=== PATIENT | female | born 1965 | race Caucasian/White ===

== ENCOUNTER 2018-09-23 19:20 | Emergency (ER) | payer BC, OTHER ==
--- NOTE | 2018-09-23 19:42 | C.PDOC ---
Chief Complaint (Nursing): Breast Problem Past Medical History Vital Signs: Last Vital Signs Temp 98 F 09/23/18 19:24 Pulse 70 09/23/18 19:24 Resp 18 09/23/18 19:24 BP 143/76 09/23/18 19:24 Pulse Ox 95 09/23/18 19:24 - Medical History PMH: HTN, Hypercholesterolemia - [facility] Procedures NEBULIZER THERAPY (05/18/13) - Social History Hx Tobacco Use: No Hx Alcohol Use: Yes Hx Substance Use: No - Immunization History Hx Tetanus Toxoid Vaccination: No Hx Influenza Vaccination: No Hx Pneumococcal Vaccination: No ED Course And Treatment O2 Sat by Pulse Oximetry: 95 Disposition - Disposition
--- NOTE | 2018-09-23 20:59 | C.PDOC ---
History Of Present Illness 53yo female, with history of hypertension, high cholesterol, comes to ER reporting left sided chest pain and left lateral chest wall pain x 4 days. Patient states she had similar pain 1 week ago and was resolved, but returned 4 days ago, causing her concern. She reports the pain is pressure-like and worse at night and associated with difficulty breathing. She reports taking Ibuprofen with minimal relief. Otherwise, no fever, chills, night sweats, abdominal pain, vomiting, diarrhea, rash. No additional complaints. Of note, patient also denies any changes to her breast or nipple discharge. PMD: None Time Seen by Provider: 09/23/18 19:42 Chief Complaint (Nursing): Breast Problem History Per: Patient History/Exam Limitations: no limitations Onset/Duration Of Symptoms: Days Current Symptoms Are (Timing): Still Present Past Medical History Reviewed: Historical Data, Nursing Documentation, Vital Signs Vital Signs: Last Vital Signs Temp 98 F 09/23/18 19:24 Pulse 70 09/23/18 19:24 Resp 18 09/23/18 19:24 BP 143/76 09/23/18 19:24 Pulse Ox 95 09/23/18 19:24 - Medical History PMH: HTN, Hypercholesterolemia Surgical History: No Surg Hx - [facility] Procedures NEBULIZER THERAPY (05/18/13) Family History: States: Unknown Family Hx Other Family History: dad w/ pacemaker at 74 - Social History Hx Tobacco Use: No Hx Alcohol Use: Yes Hx Substance Use: No - Immunization History Hx Tetanus Toxoid Vaccination: No Hx Influenza Vaccination: No Hx Pneumococcal Vaccination: No Review Of Systems Except As Marked, All Systems Reviewed And Found Negative. Constitutional: Negative for: Fever, Chills, Sweats Cardiovascular: Positive for: Chest Pain Respiratory: Negative for: Shortness of Breath Gastrointestinal: Negative for: Nausea, Vomiting, Abdominal Pain Genitourinary: Negative for: Dysuria Neurological: Negative for: Weakness, Numbness Physical Exam - Physical Exam Appears: Non-toxic, No Acute Distress Skin: Normal Color, Warm, Dry Head: Atraumatic, Normacephalic Eye(s): bilateral: Normal Inspection Neck: Normal ROM, Supple Chest: Symmetrical, Tenderness (tenderness to palpation of ) Cardiovascular: Rhythm Regular, No Murmur Respiratory: Normal Breath Sounds, No Wheezing Gastrointestinal/Abdominal: Normal Exam, Soft Back: Normal Inspection Extremity: Normal ROM, No Pedal Edema Neurological/Psych: Oriented x3 ED Course And Treatment - Laboratory Results Result Diagrams: 09/23/18 21:05 09/23/18 21:05 ECG: Interpreted By Me, Viewed By Me ECG Rhythm: Sinus Rhythm Interpretation Of ECG: no STEMI Rate From EC O2 Sat by Pulse Oximetry: 95 (RA) Pulse Ox Interpretation: Normal Medical Decision Making Medical Decision Makinyo female, hx of htn and hch, comes with left sided chest pain, also present in left lateral chest wall, worse with palpation and movement. CP began >3d prior. Well appearing on exam. EKG unremarakble Likely musculoskeletal pain Plan: -- Labs -- EKG -- CXR 2141 Heart score: Age: 1 RF: 2 Trop: 0 EK Story: 0 Labs reviewed, negative cardiac enzyme CXR reviewed and no acute findings. Patient informed she likely has musculoskeletal chest pain. On reassessment, she reports improvement in pain and is stable for discharge home. Patient given information to follow up at clinic. Disposition - Disposition Referrals: Seamus Penaloza MD [Staff Provider] - [facility] [Outside] Transaction Coordinator [facility] [Outside] [facility] [Outside] Disposition: HOME/ ROUTINE Disposition Time: 21:44 Condition: STABLE Additional Instructions: RETURN IF PAIN PERSISTS OR ANY OTHER NEW SYMPTOMS. TAKE MOTRIN WE DISCUSSED. ( written on bottle) DOMI FLOREZ, thank you for letting us take care of you today. Your provider was Juan Alcocer and you were treated for LT SIDE BREAST PAIN. The emergency medical care you received today was directed at your acute symptoms. If you were prescribed any medication, please fill it and take as directed. It may take several days for your symptoms to resolve. Return to the Emergency Department if your symptoms worsen, do not improve, or if you have any other problems. Please contact your doctor or call one of the physicians/clinics you have been referred to that are listed on the Patient Visit Information form that is included in your discharge packet. Bring any paperwork you were given at discharge with you along with any medications you are taking to your follow up visit. Our treatment cannot replace ongoing medical care by a primary care provider outside of the emergency department. Thank you for allowing the [facility] team to be part of your care today. If you had an X-Ray or CT scan: A Radiologist will review the ED reading if any change in treatment is needed we will contact you. If you had a blood, urine, or wound culture: It will take several days for the results, if any change in treatment is needed we will contact you. If you had an STI test: It will take 48 hours for the results. Please call after 1 week if you have not heard back. Instructions: Chest Pain (DC) Forms: [facility] (Irish), [facility] (South Korean) Print Language: IVORIAN - Clinical Impression Clinical Impression: Chest pain - Scribe Statement The provider has reviewed the documentation as recorded by the Shantel Kim Provider Attestation: All medical record entries made by the Shantel were at my direction and personally dictated by me. I have reviewed the chart and agree that the record accurately reflects my personal performance of the history, physical exam, medical decision making, and the department course for this patient. I have also personally directed, reviewed, and agree with the discharge instructions and disposition.
[2018-09-23 21:08] LABS: BASO % 0.7 % (0.0-2.0); EOS # 0.4 K/uL (0.0-0.7); EOS % 5.7 % (0.0-4.0); LYMPH # 1.5 K/uL (1.0-4.3); LYMPH % 20.8 % (20.0-40.0); MEAN CELL VOLUME 85.6 fL (81.0-99.0); MEAN CORPUSCULAR HEMOGLOBIN 27.8 pg (27.0-31.0); MEAN CORPUSCULAR HGB CONC 32.5 g/dL (33.0-37.0); MEAN PLATELET VOLUME 7.5 fL (7.2-11.7); MONO # 0.4 K/uL (0.0-0.8); NEUT # 4.8 K/uL (1.8-7.0); NEUT % 66.8 % (50.0-75.0); RBC 4.32 Mil/uL (3.80-5.20); RED CELL DISTRIBUTION WIDTH 13.6 % (11.5-14.5); WHITE BLOOD COUNT 7.2 K/uL (4.8-10.8)
[2018-09-23 21:22] LABS: ALB/GLOB RATIO 1.5 (1.0-2.1); ALBUMIN 4.4 g/dL (3.5-5.0); ALT/SGPT 16 U/L (9-52); AST/SGOT 24 U/L (14-36); BLOOD UREA NITROGEN 18 mg/dL (7-17); CALCIUM 9.2 mg/dl (8.6-10.4); GFR NON-AFRICAN AMERICAN > 60
[2018-09-23 22:53] VITALS: BP 130/79; PULSE 78; RESP 22; TEMP 98.4
[2018-09-24 00:11] VITALS: O2SAT 95
--- NOTE | 2018-09-24 08:48 | RAD ---
HISTORY: left chest wall tenderness COMPARISON: None available TECHNIQUE: Chest PA and lateral FINDINGS: Examination limited by habitus. LUNGS: No focal consolidation. Please note that chest x-ray has limited sensitivity for the detection of pulmonary masses. PLEURA: No significant pleural effusion identified. No definite pneumothorax . CARDIOVASCULAR: Mild cardiomegaly. Atherosclerotic calcifications of the aorta. OSSEOUS STRUCTURES: Degenerative changes. VISUALIZED UPPER ABDOMEN: Unremarkable. OTHER FINDINGS: None. IMPRESSION: No focal consolidation.
== END 2018-09-23 22:49 | disposition home or self-care (01) ==
LOC: C.ER 19:20
DX: R07.89 Other chest pain (principal)

== ENCOUNTER 2018-09-29 15:37 | Emergency (ER) | payer OTHER ==
[2018-09-29 15:49] VITALS: BP 134/81; PULSE 62; RESP 16; TEMP 98.1; O2SAT 100
[2018-09-29 16:50] LABS: BASO # 0.1 K/uL (0.0-0.2); BASO % 0.7 % (0.0-2.0); EOS # 0.3 K/uL (0.0-0.7); EOS % 4.4 % (0.0-4.0); HEMOGLOBIN 12.3 g/dL (11.0-16.0); LYMPH # 1.7 K/uL (1.0-4.3); LYMPH % 22.9 % (20.0-40.0); MEAN CELL VOLUME 85.7 fL (81.0-99.0); MEAN CORPUSCULAR HEMOGLOBIN 27.6 pg (27.0-31.0); MEAN CORPUSCULAR HGB CONC 32.2 g/dL (33.0-37.0); MEAN PLATELET VOLUME 7.5 fL (7.2-11.7); MONO # 0.4 K/uL (0.0-0.8); MONO % 5.5 % (0.0-10.0); NEUT % 66.5 % (50.0-75.0); RBC 4.47 Mil/uL (3.80-5.20); RED CELL DISTRIBUTION WIDTH 13.8 % (11.5-14.5); WHITE BLOOD COUNT 7.5 K/uL (4.8-10.8)
[2018-09-29 17:02] LABS: INR 1.1; PARTIAL THROMBOPLASTIN TIME 35 SECONDS (21-34); PROTHROMBIN TIME 12.3 SECONDS (9.7-12.2)
--- NOTE | 2018-09-29 17:06 | C.PDOC ---
History Of Present Illness 53 y/o female with history of HTN and high cholesterol is here for evaluation of left sided chest pain (mainly lateral) x 2+ weeks with associated difficulty breathing due to pain, dizziness, nausea and chills on occasion. Pain is worse at night when she lays down. Pain is better sitting in an upright position. She denies any trauma, strenuous physical exercise, recent travel, recent illness, fever, cough, SOB, vomiting, and abdominal pain. She mentions previous episode over a week ago lasting 3 days that resolved with pain meds but returned last . She was seen in the ED and was diagnosed with musculoskeletal related chest pain. She had negative cardiac enzymes. Ekg and Chest xray did not reveal any acute changes. She was advised to take otc Motrin BID but denies much relief. Time Seen by Provider: 09/29/18 16:19 Chief Complaint (Nursing): Chest Pain History Per: Patient History/Exam Limitations: no limitations Onset/Duration Of Symptoms: Intermittent Episodes Current Symptoms Are (Timing): Still Present Severity: Moderate Pain Scale Rating Of: 7 Quality: Sharp Associated Symptoms: Nausea. denies: Diaphoresis, Syncope Exacerbating Factors: Movement (laying flat), Deep Breathing Alleviating Factors: Other (sitting) Recent travel outside of the [place]: No Past Medical History Reviewed: Historical Data, Nursing Documentation, Vital Signs Vital Signs: Last Vital Signs Temp 98.1 F 09/29/18 15:46 Pulse 62 09/29/18 15:46 Resp 16 09/29/18 15:46 BP 134/81 09/29/18 15:46 Pulse Ox 100 09/29/18 15:46 - Medical History PMH: HTN, Hypercholesterolemia Surgical History: Tonsillectomy Other Surgeries: hemorrhoid surgery - [facility] Procedures NEBULIZER THERAPY (05/18/13) Family History: States: [place] (mother at 63yo), CAD - Social History Hx Tobacco Use: No Hx Alcohol Use: Yes Hx Substance Use: No - Immunization History Hx Tetanus Toxoid Vaccination: No Hx Influenza Vaccination: No Hx Pneumococcal Vaccination: No Review Of Systems Constitutional: Negative for: Fever, Chills, Sweats Cardiovascular: Positive for: Chest Pain. Negative for: Palpitations, Light Headedness Respiratory: Negative for: Cough, Shortness of Breath Gastrointestinal: Positive for: Nausea. Negative for: Vomiting, Abdominal Pain, Diarrhea Musculoskeletal: Negative for: Neck Pain, Back Pain Skin: Negative for: Rash, Bruising Neurological: Negative for: Weakness, Headache, Dizziness Physical Exam - Physical Exam Appears: Well, Non-toxic, No Acute Distress Skin: Normal Color, Warm, Dry Head: Atraumatic, Normacephalic, No Tenderness Neck: Normal ROM, Supple Lymphatic: No Adenopathy Chest: Symmetrical, Tenderness (upon palpation on the left anterolaterally) Cardiovascular: Rhythm Regular Respiratory: Normal Breath Sounds, No Wheezing Gastrointestinal/Abdominal: Bowel Sounds, Soft, No Tenderness Back: No CVA Tenderness Neurological/Psych: Oriented x3, Normal Speech, Normal Cognition, Normal Sensation ED Course And Treatment - Laboratory Results Result Diagrams: 09/29/18 16:44 09/29/18 16:44 ECG: Viewed By Me ECG Rhythm: Sinus Bradycardia ECG Interpretation: No Acute Changes Rate From EC O2 Sat by Pulse Oximetry: 100 Medical Decision Making Medical Decision Making: A/P: Musculoskeletal Chest Pain - assessed with Dr. Worthington due to 2nd visit to ED - Labs and EkG are unremarkable; D-dimer negative - explained to patient that pain is likely Musculoskeletal in nature - trial of Tylenol 1gm prn pain - patient was advised to follow up if pain persists or worsens; if she develops fever, vomiting, etc - patient verbalized understanding Disposition Counseled Patient/Family Regarding: Studies Performed, Diagnosis, Need For Followup, Rx Given - Disposition Referrals: [facility] [Outside] Disposition: HOME/ ROUTINE Disposition Time: 17:41 Condition: STABLE Additional Instructions: DOMI FLOREZ, thank you for letting us take care of you today. Your provider was Catracho Worthington/Austin Kate PA-C and you were treated for ABD PAIN. The emergency medical care you received today was directed at your acute symptoms. If you were prescribed any medication, please fill it and take as directed. It may take several days for your symptoms to resolve. Return to the Emergency Dep artment if your symptoms worsen, do not improve, or if you have any other problems. Please contact your doctor or call one of the physicians/clinics you have been referred to that are listed on the Patient Visit Information form that is included in your discharge packet. Bring any paperwork you were given at discharge with you along with any medications you are taking to your follow up visit. Our treatment cannot replace ongoing medical care by a primary care provider outside of the emergency department. Thank you for allowing the [facility] team to be part of your care today. Prescriptions: Acetaminophen [Tylenol Extra Strength] 1,000 mg PO Q6 PRN #30 tablet PRN Reason: Pain, Moderate (4-7) Instructions: Chest Pain That Is Not Caused by the Heart (DC) Forms: [employer] (Somali) Print Language: YORUBA - Clinical Impression Clinical Impression: Musculoskeletal chest pain - PA / [employer]IC[employer] DEPARTMENT MANAGER / Resident Statement MD/DO has reviewed & agrees with the documentation as recorded.
[2018-09-29 17:13] LABS: D DIMER < 200 ng/mlDDU (0-243)
[2018-09-29 17:16] LABS: ALB/GLOB RATIO 1.5 (1.0-2.1); ALBUMIN 4.1 g/dL (3.5-5.0); ALT/SGPT 12 U/L (9-52); AST/SGOT 23 U/L (14-36); BLOOD UREA NITROGEN 15 mg/dL (7-17); CALCIUM 9.1 mg/dl (8.6-10.4); GFR NON-AFRICAN AMERICAN > 60
--- NOTE | 2018-10-04 23:26 | CARD ---
APPROVED REPORT Date of service: 09/29/2018 EKG Measurement Heart [id number] <Conclusion> Sinus bradycardia Otherwise normal ECG
== END 2018-09-29 17:52 | disposition home or self-care (01) ==
LOC: C.ER 15:37
DX: R07.89 Other chest pain (principal)